=== PATIENT | male | born 1940 | race Caucasian/White ===

== ENCOUNTER 2016-08-16 16:57 | Inpatient (IN) | payer MEDICARE, OTHER ==
[~2016-08-16] VITALS: Ht 172.7 cm; Wt 87.5 kg
--- NOTE | ~2016-08-16 | DS ---
PATIENT'S NAME: JULISSA MIDDLETON [facility] AGE: 75 Y [address] ROOM: [address] [address] LOCATION: T ADMIT DATE: 08/16/2016 Discharge Summary DISCHARGE DATE: 08/19/2016 FAMILY PHYSICIAN: Mackenzie Santa MD ATTENDING PHYSICIAN: Ventura Krishnan V CORRECTED PATIENT ACCOUNT INFORMATION PER OPERATIONS 08/31/16 AO PRINCIPLE DIAGNOSES: 1. Left thalamic ischemic CVA. 2. 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 3. Aphasia. 4. Right hemiplegia. 5. Essential hypertension. 6. Hyperlipidemia. 7. Diabetes mellitus type 2. 8. Glucose intolerance. HOSPITAL COURSE: Please reference any of the admitting data to the history and physical as dictated by Dr. Krishnan. This is a 75-year-old male, who was having altered mental status and some right-sided weakness and slurred speech taken to an outside facility emergency room where he was outside the tPA window was felt to be having a stroke then was sent to the [facility] for further evaluation and management. He was admitted under the Hospitalist Service and started on the stroke management non tPA. He was initially started on aspirin 325 mg p.o. daily as well as Lipitor [address] Duarte, the neurologist was consulted. He was given permissive hypertension. After review by Dr. Duarte, the aspirin was stopped and he was initiated on Plavix and his Lipitor was increased to the maximum dosing. MRI of the brain was ordered showing a complete occlusion of the proximal left posterior cerebral artery as well as ischemic stroke in the left thalamus. He was started on physical therapy, occupational therapy, and speech therapy. He did show some improvements. Again, he was allowed on permissive hypertension. Physiatry consult was obtained and he was felt best suited to transition into inpatient rehab. He was kept on Lovenox DVT prophylaxis dosing. The remaining of his stroke workup included an echocardiogram, MRA of the neck, and carotid duplex study. The patient was kept on telemetry. On the morning of the , the patient was felt in fair condition to transition to inpatient rehab. CONSULTING PROVIDERS: Dr. Duarte, Neurologist. Dr. Ta, Physiatry. LABORATORY DATA: Cardiac enzymes negative. CBC showed white blood cells 10.1, hemoglobin 14.0, hematocrit of 43.0, and a platelet count of 216. Chemistry panel on the same day showed a glucose of 125, BUN 17, and PATIENT'S NAME: JULISSA MIDDLETON [facility] AGE: 75 Y [address] ROOM: [address] [place], [place] [address] LOCATION: TU ADMIT DATE: 08/16/2016 Discharge Summary DISCHARGE DATE: 08/19/2016 FAMILY PHYSICIAN: Mackenzie Santa MD ATTENDING PHYSICIAN: Ventura Krishnan V creatinine 1.0. Sodium 146, potassium 4.4, chloride of 113, CO2 of 25, calcium 8.6, and GFR of greater than 60. His fasting lipid panel showed a cholesterol of 115, triglycerides 84, LDL of 38, and HDL 61. His INR was 1.0. Urinalysis was negative for infection. RADIOLOGIC IMAGING: MRA of the brain showed complete occlusion of the proximal left posterior cerebral artery within the ambient cistern. An MRI of the brain showed an acute nonhemorrhagic left thalamic infarct. A MRA of the neck showed normal vertebral basilar system and normal bilateral carotid circulation. An echocardiogram showed a left ventricular ejection fraction of 60% with a left ventricle being normal in size. There was a grade 1 diastolic dysfunction. No evidence of PFO or ASD by color Doppler. There was inner atrial septum appearing aneurysmal. Mild pulmonary hypertension. Left atrium mildly dilated. Carotid Doppler study unavailable. Pending official read. DISCHARGE MEDICATIONS: 1. Atorvastatin 80 mg p.o. every day. 2. Clopidogrel 75 mg p.o. every day. 3. Docusate sodium 200 mg p.o. every day. 4. Enoxaparin 40 mg subcutaneous every day. 5. Gabapentin 100 mg p.o. 3 times daily. 6. NovoLog moderate sliding scale before meals and at bedtime. 7. Levothyroxine 88 mcg p.o. daily at 0700. 8. Metamucil 1 packet p.o. every day. 9. Tylenol 650 mg p.o. every 4 hours as needed for temperature greater than 100 or discomfort. 10. D50 of 25 mL IV push for hypoglycemia as needed per protocol. 11. Glucagon 1 mg subcutaneous for hypoglycemia as per protocol. 12. Glucose 16 grams p.o. for hypoglycemia as per protocol. 13. Lidocaine 1% for IV starts intradermally. 14. Ultram 50 mg p.o. 4 times daily as needed for pain. 15. Norvasc 2.5 mg p.o. daily, hold if systolic blood pressure is less than 130. 16. Metformin 500 mg p.o. twice daily. DISPOSITION: The patient will be transitioned to the inpatient rehab unit with continued observation by the hospitalist team in therapy and restorative plan as per Dr. Ta. PATIENT'S NAME: JULISSA MIDDLETON [facility] AGE: 75 Y [address] ROOM: [address] [place], [place] [address] LOCATION: [facility] ADMIT DATE: 08/16/2016 Discharge Summary DISCHARGE DATE: 08/19/2016 FAMILY PHYSICIAN: Mackenzie Santa MD ATTENDING PHYSICIAN: Ventura Krishnan V His code status should be full code. His diet should be diabetic and cardiac diet and low fat, low salt, low cholesterol. His weightbearing status as tolerated with fall precautions. Again therapies directed by Dr. Ta. Specific recommendations were made for goals of blood pressure management between systolic 120-160 mmHg. Blood sugar monitoring before meals and at bedtime were also recommended. The above plan was discussed with the patient and his spouse who stated complete understanding and agreed to the plan. All questions were answered satisfactorily. Total time arranging discharge greater than 30 minutes as documented by Dr. Bowers in the progress note on day of discharge. Thank you for allowing us to participate in the care of this patient while at [facility]. MALDONADO BARKLEY APRN, APRN FOR MD HERMES TEMPLE/heidi /[id number] CORRECTED PATIENT ACCOUNT INFORMATION PER OPERATIONS 08/31/16 AO d: t: 08/31/16 1033, DISCHARGE SUMMARY
--- NOTE | ~2016-08-16 | CON ---
PATIENT'S NAME: TIMOTHY MIDDLETONH Pravin [facility] AGE: 75 Y [address] ROOM: [place] [address] LOCATION: [facility] ADMIT DATE: 08/16/2016 Consultation DISCHARGE DATE: FAMILY PHYSICIAN: Mackenzie Santa MD ATTENDING PHYSICIAN: CURT PARISH REFERRING PHYSICIAN: Jay Pablo MD Consult for Dr. Krishnan. This pleasant 75-year-old gentleman is referred for rehab evaluation admission (?) was admitted on 08/16/2016 with right-sided weakness and disorientation, progressively getting worse along with slurred speech, and was seen in a local hospital and referred here for definitive management. His confirms that he did have small strokes before at least twice and he recovered well. PAST MEDICAL HISTORY: Of significant as follows, 1. CA bladder, status post resection. 2. Hypertension. 3. Diabetes type 2. 4. Dyslipidemia. 5. Hypothyroid. 6. Mild to moderate obesity. PHYSICAL EXAMINATION: GENERAL: At the present time, he is alert, oriented, feels well, requires some cuing along the way to orient well to the place and person. VITAL SIGNS: Blood pressure 195/86, temperature 98.1, pulse 65, respirations 16. He is 5 feet 8 inches and weighs 84.8 kg. HEENT: He has slight very mild right facial droop and has right distant temporal visual cut/neglect. His tongue on the right side is slightly less mobile than the left side. However, soft palate is moving symmetrical. Voice is clear and not wet. NEURO: He has no dizziness and no vertigo at the present time. Denied headaches. He is less coordinated with the right upper and lower extremity and maybe a little bit weaker (he is right handed). His MRI of the brain shows critical acute infarct without hemorrhage in the left thalamic area close to the ventricles. He is neurologically otherwise intact. Deep tendon reflexes present and equal throughout. Bowel and bladder, good control. MEDICATIONS: He is on following medications: PATIENT'S NAME: TIMOTHY MIDDLETONH Pravin [facility] AGE: 75 Y [address] ROOM: [address] [address] LOCATION: [facility] ADMIT DATE: 08/16/2016 Consultation DISCHARGE DATE: FAMILY PHYSICIAN: Mackenzie Santa MD ATTENDING PHYSICIAN: CURT PARISH 1. Colace. 2. Metamucil. 3. Lipitor. 4. Plavix. 5. Synthroid. 6. Gabapentin. 7. Tramadol. 8. Insulin aspartate moderate scale. 9. Glucagon. 10. Glucose. 11. Dextrose. 12. Tylenol. 13. Aspirin. I will continue him on PT and OT and will add Speech Therapy to his therapies at the present time. I feel that this gentleman will benefit from intensive rehabilitation for about maybe 2 weeks. He can at the present time ambulate 25-30 feet with moderate assistance. He is high risk of falling. I did explain all this to his and himself, they verbalized understanding and in agreement. Thank you for this referral. JAY PABLO MD WMS/modl /[id number] d: 08/17/16 1913 t: 08/18/16 0841, CONSULTATION REPORT
--- NOTE | ~2016-08-16 | CON ---
PATIENT'S NAME: JULISSA FONG [facility] AGE: 75 Y [address] ROOM: [place] [address] LOCATION: [facility] ADMIT DATE: 08/16/2016 Consultation DISCHARGE DATE: FAMILY PHYSICIAN: PHYSICIAN, UNKNOWN ATTENDING PHYSICIAN: CURT PARISH REFERRING PHYSICIAN: Jay Ta MD HISTORY OF PRESENT ILLNESS: The patient was seen in Neurologic consultation on 08/16/2016 at 9:00 p.m. Mr. Fong is a 75-year-old male patient who has a history of hypertension and diabetes. He recently has had worsening of his glucose control. Apparently, he was in a normal state of health this morning, watching TV with his . Did not have any slurring of his speech. Around noon, his said that she had found him in his room sleeping in the bed. This was strange because he normally he does not leave his recliner to go to sleep. She came into the room and saw him and thought that he was a bit drowsy, but did not think too much of it. Around 3 o'clock, he awoke and she noted that he was slurring his speech a lot more than usual and perhaps had a facial droop. She described it as a more pronounced droop on the left; however, it appears that the flattening of the nasolabial fold is actually on the right as well as him having some difficulty in ambulating, more likely associated with right-sided weakness. Potentially more right upper arm weakness from his baseline. 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 At around 2:30 p.m., the patient was taken by the EMS service to the hospital at [facility] near the patient's home for evaluation. At the hospital, a CAT scan of the brain was done to rule out any evidence of a new stroke. A CAT scan was reviewed by myself and by the radiologist and did not show any evidence of any new or evolving stroke and there was no evidence of any intracranial hemorrhage or mass. Currently, the patient is in his room. He is alert and oriented, but is significantly affected by slurring of his speech. He is a bit slow in answering questions. He had noted right hand weakness and somewhat of a drift in his right hand. Otherwise his lower extremity power was symmetric. Presently, he denied any numbness of the jennifer body. He denied any visual field deficits. Currently, the patient is in sinus bradycardia with no evidence of ST or T-wave changes. There is an occasional extra beat or bigeminal rhythm. No evidence of any arrhythmia. PRIOR MEDICAL HISTORY: Noted a history of hypertension and diabetes. ALLERGIES: HE HAS ALLERGIES TO KEFLEX WHICH CAUSES HIM TO GET A RASH. FAMILY HISTORY: PATIENT'S NAME: JULISSA FONG [facility] AGE: 75 Y [address] ROOM: [address] [place], [place] [address] LOCATION: [facility] ADMIT DATE: 08/16/2016 Consultation DISCHARGE DATE: FAMILY PHYSICIAN: PHYSICIAN, UNKNOWN ATTENDING PHYSICIAN: CURT PARISH His mother and father both had coronary artery disease and both had strokes. SOCIAL HISTORY: He is for 45 years. He has 3 boys. He still works occasionally, doing outdoor work, but is essentially retired. 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 REVIEW OF SYSTEMS: The patient presented with acute onset of some slurring of his speech, some time around mid day, some tiredness over all. There was no evidence of any headaches. No evidence of seizures. No evidence of any visual field complaints. He presented very much like he is presently to the hospital, a bit confused to the date and time and the speech is slow with often some paraphasic errors. He does have a mumbling quality to his speech. There is a subtle flattening of the right nasolabial fold and weakness of his right upper extremity, combined with some chronic proximal pain and weakness. CURRENT MEDICATIONS: At home included, 1. Baby aspirin 81 mg daily. 2. Amlodipine 2.5 mg p.o. daily. 3. Gabapentin 100 mg three times a day. 4. Glipizide ER 5 mg p.o. daily. 5. Levothyroxine 88 mcg p.o. daily. 6. Ramipril 10 mg p.o. b.i.d. 7. Tramadol 50 mg four times a day p.r.n. 8. Atorvastatin 10 mg p.o. daily. PHYSICAL EXAMINATION: GENERAL: The patient is alert. Has some problems with orientation to date and time and even to months. He has some errors in naming parts of objects such as pen point. Other attempts to name objects resulted in evidence of a dysarthric type of a problem or some type of motor aphasia. NEUROLOGICAL: Rest of physical exam, on cranial nerve, there is a right hemianopsia with the patient unable to identify the fingers moving in his right visual field up to nasal. Left visual field is normal. There is some visual field neglect present. 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 The proximal power was difficult to assess on the right due to the pain at the shoulder. The right lower extremity power is 4+ to nearly 5 and symmetrical and nearly symmetrical with the left. The left upper extremity is full power. Sensory exam: Completely intact and there is no cortical signs of neglect with double simultaneous stimulation and right to left discrimination. He has this normal. The patient was not ambulatory presently. PATIENT'S NAME: JULISSA FONG [facility] AGE: 75 Y [address] ROOM: [place] [address] LOCATION: [facility] ADMIT DATE: 08/16/2016 Consultation DISCHARGE DATE: FAMILY PHYSICIAN: PHYSICIAN, UNKNOWN ATTENDING PHYSICIAN: CURT PARISH IMPRESSION: Mr. Julissa Fong has a history of diabetes. Were not clear as to how poorly controlled he is, but there is only some evidence of glucose elevation on his laboratory. Otherwise his CBC and basic metabolic panel is within normal limits. Coagulation profile also within normal limits. There is no evidence of any troponin elevation and liver function tests and kidney function tests were all normal. The patient likely had a stroke involving the posterior or parietal region of the brain with some aspect of aphasia going on here. This would possibly be related to a left OFFICE RUNNER, posterior cerebral artery infarct or some type of optic radiation infarct involving some areas of the basal ganglia to the thalamus. An MRI is ordered and the patient will likely have this in the morning for stroke management. Let us put him on Plavix instead of the aspirin at this point. I would recommend increasing the Lipitor to a full dose of 80 mg as recommended by the [employer], post stroke management, and finally even though the patient comes in with normal sinus rhythm, the possibility of an arrhythmia is certainly possible. If this does field return repairer to be a larger territorial type of a stroke especially in isolation. The patient's mental status suggested a larger stroke than what would be expected with a small lacuna. Since he does seem to be a bit slow to respond. Tired overall. We will continue to follow along with the hospitalist service on Mr. Julissa Fong' status. MD MARILYN CARPENTER/heidi /[id number] P d: 08/17/16 0200 t: 09/01/16 1523, CONSULTATION REPORT
--- NOTE | ~2016-08-16 | HP ---
PATIENT'S NAME: TIMOTHY MIDDLETONH Pravin [facility] AGE: 75 Y [address] ROOM: [address] [address] LOCATION: [facility] ADMIT DATE: 08/16/2016 History & Physical DISCHARGE DATE: FAMILY PHYSICIAN: PHYSICIAN, UNKNOWN ATTENDING PHYSICIAN: CURT PARISH DATE OF SERVICE: CHIEF COMPLAINT: Altered mental status. HISTORY OF PRESENT ILLNESS: The patient is a 75-year-old male with past medical history of hypertension and diabetes. He was observed by his to be progressively more altered in a course of the day. Eventually, she found him quite altered, disoriented, and with some right-sided weakness and slurred speech. She called the paramedics, and the patient was taken to the ER in [place]. At that point, the suspicion was strong for an acute CVA, but he was already out of the tPA window. As such, he was transferred to [facility] for further evaluation. Of note, the does tell me that the patient told her that has had a "mini- stroke" on several occasions in the last several months. Unfortunately, I am unable to understand exactly what he means by that. REVIEW OF SYSTEMS: All systems have been reviewed and are negative aside from pertinent positives mentioned above. PAST MEDICAL HISTORY: Hypertension, hyperlipidemia, and type 2 diabetes. SURGICAL HISTORY: Significant for bladder cancer, status post resection, which is now apparently inactive. CURRENT MEDICATIONS: Being compiled by the nursing staff. SOCIAL HISTORY: Negative for any history of ongoing toxic habits. The patient is still quite active and still works. FAMILY HISTORY: Significant for cerebrovascular disease on both sides of the family. PHYSICAL EXAMINATION: PATIENT'S NAME: JULISSA MIDDLETON [facility] AGE: 75 Y [address] ROOM: [address] [place] [id number] LOCATION: [facility] ADMIT DATE: 08/16/2016 History & Physical DISCHARGE DATE: FAMILY PHYSICIAN: PHYSICIAN, UNKNOWN ATTENDING PHYSICIAN: CURT PARISH VITAL SIGNS: At this point, his blood pressure is 153/63, heart rate is in the 60s, saturating 96% on room air, afebrile, and respirations are 16. GENERAL: Appears as a well-developed, well-nourished, elderly male, quite sedate and disoriented. NEURO: A detailed neurological exam is positive for right-sided droop and confusion. Pupils which are 3 mm bilaterally and nonreactive. Very slight impairment of the right-sided gaze. 3/5 weakness in right upper extremity. Ataxia in the right upper extremity. Some aphasia and dysarthria as well as partial right-sided neglect. LYMPHATIC: Exam shows no cervical lymphadenopathy. ENDOCRINE: Exam shows no thyromegaly. LUNGS: Clear to auscultation. HEART: Rate is regular. No appreciable murmurs, gallops, or rubs. GI: Abdomen is soft, nontender, and nondistended. : No costovertebral angle tenderness. There is a Denis in place, which is draining pink urine. VASCULAR: Exam reveals 2+ pedal pulses. SKIN: Reveals a leanna appearance of his face and multiple small vein varicosities over bilateral lower extremities. PSYCHIATRIC: Exam reveals slightly depressed mood and cognition as well as very flat affect. MUSCULOSKELETAL: Exam is unremarkable. LABORATORY DATA: Studies from the outside facility significant for an elevated glucose and a CT scan of his head, which shows senescent changes. ASSESSMENT AND PLAN: This is a 75-year-old male who will be admitted with, 1. Most likely acute cerebrovascular accident. We will start him on some IV fluids to try and maintain his blood pressure. We will start him on full- dose aspirin and statins. We will initiate a standard workup with MRIs, carotid Dopplers, and a 2-dimensional echocardiogram. We will attempt a bedside swallow evaluation. We will get a Neurology consultation in the morning. 2. Type 2 diabetes. We will put the patient on insulin sliding scale. 3. Hypertension. We will opt for a 48-hour period of permissive hypertension. 4. Bladder cancer noted. This is distant and at this point not pertinent. 5. Goals of care: The patient's spouse tells me that he expresses a desire to be full code and we will respect that. Additional management will depend on clinical course. Time dedicated to this patient's encounter is 35 minutes. PATIENT'S NAME: JULISSA MIDDLETON [facility] AGE: 75 Y [address] ROOM: [address] [place], [place] [address] LOCATION: [facility] ADMIT DATE: 08/16/2016 History & Physical DISCHARGE DATE: FAMILY PHYSICIAN: PHYSICIAN, UNKNOWN ATTENDING PHYSICIAN: CURT PARISH MD Breonna SUERO /[id number] D: [id number] T: [id number] HISTORY & PHYSICAL
--- NOTE | ~2016-08-16 | ECHO ---
Transthoracic Echocardiography Report (TTE) Demographics Patient Name JULISSA MIDDLETON Date of Study 08/17/2016 Patient Number [id number] Visit Number [id number] Date of 1940 Room Number G6228 Accession Number [id number] Gender Male Age 75 year(s) Referring Jazmin Lane MD Golf Player Assistant Charisse Ellis RVT, Physician WILLY Arriaga Physician Interpreting Kristal Kennedy Drywaller Physician Pravin TRENT Supervising Ordering Physician Eulogio Martinez MD/JACY TRENT Nurse Stress Vacuum Cleaner Operator Conclusions Contractility Score Summary Normal Left Ventricular contractility was noted. Summary The estimated left ventricular ejection fraction is 60%. The left ventricle is normal in size . Diastolic assessment reveals Grade I diastolic dysfunction. The interatrial septum appears aneurysmal. No evidence of PFO or ASD by color doppler. Trivial tricuspid regurgitation by color Doppler. There is mild pulmonary hypertension. The pulmonary pressure (RVSP) is 37 mmHg. Procedure Type of Study TTE procedure:2D Echocardiogram, M-Mode, Doppler , Color Doppler. Procedure Date Date: 08/17/2016 Start: 07:15 AM Study Location: Inpatient Portable Technical Quality: Adequate visualization Indications:CVA. Appropriate Use Criteria: 9 Patient Status: Routine HR: 62 bpm BP: 164/70 mmHg M-Mode/2D Measurements LV Diastolic Dimension: 4.8 cm LV Systolic Dimension: 2.68 cm LV Septum Diastolic: 0.92 cm LV PW Diastolic: 0.9 cm AO Root Dimension: 3.1 cm Cardiac Output: 5.2 l/min AV Cusp Separation: 1.9 cm RV Diastolic Dimension: 3.02 cm LA volume: 45 ml LVOT: 2 cm RV Base: 2.76 cm LVOT VTI: 26.7 cm RV Mid: 2.06 cm LV Stroke volume: 83.84 ml TAPSE: 2.33 cm TDI-S': 16 cm/s Doppler Measurements AV Peak Velocity: 1.11 m/s MV Peak E-Wave: 0.82 m/s AV Peak Gradient: 4.93 mmHg MV Peak A-Wave: 1.13 m/s AV Mean Gradient: 3 mmHg MV E/A Ratio: 0.72 LVOT Peak Velocity: 1.18 m/s MV P1/2t: 84 msec TR Gradient:28.73 mmHg PV Peak Velocity: 1.06 m/s Estimated RAP:8 mmHg PV Peak Gradient: 4.49 mmHg Estimated RVSP: 37 mmHg Estimated PASP: 36.73 mmHg E' Septal Velocity: 0.06 m/s A' Septal Velocity: 0.13 m/s E' Lateral Velocity: 0.09 m/s A' Lateral Velocity: 0.19 m/s Findings Left Ventricle The left ventricle is normal in size . Diastolic assessment reveals Grade I diastolic dysfunction. Right Ventricle Normal right ventricle structure and function. Left Atrium The left atrium is mildly dilated. The interatrial septum appears aneurysmal. No evidence of PFO or ASD by color doppler. Right Atrium Normal right atrial size. IVC measures 1.68 cm with partial inspiratory collapse. Mitral Valve Mild mitral annular calcification. Trivial mitral regurgitation by color Doppler. Aortic Valve The aortic valve is mildly sclerotic. Tricuspid Valve Normal tricuspid valve structure and function. Trivial tricuspid regurgitation by color Doppler. There is mild pulmonary hypertension. The pulmonary pressure (RVSP) is 37 mmHg. Pulmonic Valve The pulmonic valve is not well visualized. Trivial pulmonic valve regurgitation by color Doppler. Pericardial Effusion No evidence of pericardial effusion. Miscellaneous Visualized portions of the aortic root and ascending aorta appear normal in size. Pleural Effusion No evidence of pleural effusion. Contractility Score LV regional wall motion:(0-Non visualized 1-Normal 2-Hypokinesis 3-Akinesis 4-Dyskinesis 5-Aneurysm) Signature dtt: Isela Giraldo dtd: 08/17/16 0715 Physician Self Edit
[2016-08-16] MEDS ORDERED: LIPITOR80 MG PO (20:21)
[2016-08-16] MEDS ORDERED: NORVASC2.5 MG PO (20:22)
[2016-08-16] MEDS ORDERED: NEURONTIN100 MG PO (20:23)
[2016-08-16] MEDS ORDERED: GLUCOTROL 5MG XL5 MG PO (20:24)
[2016-08-16] MEDS ORDERED: LEVOTHROID (SY88 MCG PO (20:26)
[2016-08-16] MEDS ORDERED: ALTACE10 MG PO (20:32)
[2016-08-16] MEDS ORDERED: ULTRAM50 MG PO (20:34)
[2016-08-16] MEDS ORDERED: ASPIRIN LO-DOSE81 MG PO (20:35)
[2016-08-16] MEDS ORDERED: STOOL SOFTENER100 MG PO (23:28)
[2016-08-16] MEDS ORDERED: METAMUCIL PACKE1 PKT PO (23:29)
--- NOTE | 2016-08-17 02:25 | NUR ---
THE PATIENT IS FROM [facility]. GOT UP TODAY AND WAS FINE, AROUND NOON HE LAYED DOWN FOR A NAP, HIS WENT TO CHECK ON HIM AND HE WAS VERY DROWSY WITH MUMBLED SPEECH, SHE DID NOT THINK ANYTHING OF THIS AT THE TIME AND JUST LET HIM REST. LATER SHE WENT TO CHECK ON HIM AGAIN AND SHE NOTICED HE COULD NOT SPEAK CORRECTLY AND WAS SLURRING HIS WORDS, SHE ALSO NOTICED A RIGHT FACIAL DROOP. SHE CALLED THE UNIT AND HE WAS TAKEN TO THE [facility] WHERE A CT OF HIS HEAD WAS DONE, THE PATIENT WAS THEN TRANSFERRED HERE BY AMBULANCE. HE ARRIVED TO OUT UNIT AT 1945. IS ALERT AND ORIENTED X2, FORGETFUL BUT REORIENTS EASILY. PIV X2. ALLERGY TO KEFLEX. HX OF DIABETES AND HYPERTENSION. THE PATIENT ALSO HAS RIGHT ARM WEAKNESS DUE TO A SORE SHOULDER. NIHSS ON ADMISSION WAS AN 9.
[2016-08-17 04:05] LABS: BASOPHIL % 0.4 %; EOSINOPHIL # 0.5 K/uL (0.0-0.5); EOSINOPHIL % 4.6 %; IMMATURE GRANULOCYTE % 0.2 %; LYMPHOCYTE # 3.4 K/uL (0.8-4.0); LYMPHOCYTE % 33.1 %; MCH 30.6 pg (27.0-34.0); MCHC 32.6 gm/dL (32.0-36.5); MCV 93.9 fl (83.0-98.0); MONOCYTE # 0.8 K/uL (0.0-1.0); MPV 9.4 fl (9.4-12.4); NEUTROPHIL # (ANC) 5.4 K/uL (1.4-9.0); NEUTROPHIL % 53.7 %; NRBC % 0 /100WBC (0-0.00); PLATELET COUNT 216 K/uL (150-450); RBC 4.58 M/uL (3.50-5.50); RDW-CV 12.6 % (11.9-14.6); WBC 10.1 K/uL (4.0-11.0)
[2016-08-17 04:16] LABS: PROTIME 10.2 SECONDS (9.6-11.1); PTT 27 SECONDS (25-32)
[2016-08-17 04:33] LABS: BLOOD UREA NITROGEN 17 mg/dL (6-24); CALCIUM 8.6 mg/dL (8.5-10.5); CHLORIDE 113 mMol/L (96-110); CO2 25 mMol/L (22-32); CPK 59 IU/L (35-332); POTASSIUM 4.4 mMol/L (3.7-5.1)
[2016-08-17 04:34] LABS: ANION GAP 12.4 (10.0-19.0); ESTIMATED GFR (MDRD EQUATION) > 60; SODIUM 146 mMol/L (135-145)
--- NOTE | 2016-08-17 05:06 | NUR ---
Significant Event: The Patient is Alert and Oriented x1, Forgetful of place and time, Reorients easily. NIHSS 9. Right arm is weaker than the Left, the patient does have a sore R) shoulder. Bilateral legs have Moderate and Equal strength. He states he has Dull sensation to his Right Lower Leg. His stated that he has chronic N/T to bilateral feet from Diabetic Neuropathy. VSS-Hypertensive. On room air. Accu checks ACHS. Denis draining yellow urine currently, on admission the urine was pink due to tramatic placement. Pupils are equal and reactive. No complaints of pain. PIV to the Right wrist saline locked. PIV to the Left hand infusing NS at 110ml/hr. Follow up: Will have MRI/MRA, TTE, Carotids today
--- NOTE | 2016-08-17 11:15 | NUR ---
CONSULT RECEIVED FOR DIET ED PER STROKE PROTOCOL. WILL PROVIDE DIET ED PRIOR TO DC APPROPRIATE.
--- NOTE | 2016-08-17 13:10 | NUR ---
introduced self and role of care managmement to patient and his family. He lives with his in [place]. His states that normally he is able to do all his own ADL's. We discussed discahrge plans. Dr Ta had just been in the room and told patient and family he would like to take patient to Inpatient Rehab for 12-14 days. I explained that I would speak with Nancy Damon on Inpatient Rehab to see when they would have a bed available. Will continue to follow.
--- NOTE | 2016-08-17 13:50 | NUR ---
Significant Event: PT IS ALERT TO SELF; KNOWS THAT HE IS IN [facility] AT TIMES. PERRLA. SPEECH IS MUMBLED AT TIMES. NIH-SS WAS A 9 THIS AM; R)SIDE IS WEAKER THAN L)SIDE, R)DRIFT NOTED TO BOTH LIMBS, R)EYE DEFICIT, ATAXIA AND R)SIDE IS DULLER. TRANSFERRED WITH 2-ASSIST/GAIT BELT/WALKER THIS MORNING WITH PHYSICAL THERAPY. PT DID AMBULATE IN THE ROOM. NO COMPLAINTS OF PAIN. PERES INTACT, DRAINING YELLOW URINE. AC/HS ACCUCHECKS WITH MODERATE SLIDING SCALE. BILATERAL CALF PUMPS IN PLACE. IV'S TO R)WRIST AND L)HAND INTACT. IV FLUIDS INFUSING AT 110 ML/HR. DIABETIC DIET; GOOD APPETITE. TAKES MEDICATIONS WHOLE WITH WATER; NO SWALLOWING ISSUES NOTED. MRI/MRA/ECHO/CAROTIDS DONE THIS MORNING. SAW THE PT THIS MORNING. FAMILY HAS BEEN AT BEDSIDE. Follow up: CONTINUE TO MONITOR
--- NOTE | 2016-08-17 17:33 | NUR ---
Spoke with Nancy DOMINIQUE on [facility]. She feels patient would benifit from 1 additional day on acute care. Will plan on transfer to [facility] on Saturday 08/19 at 0900.
--- NOTE | 2016-08-18 03:46 | NUR ---
Significant Event: ALERT AND ORIENTED TO SELF. OCCASIONALLY ORIENTED TO PLACE. MOVES ALL EXTREMITIES SPONTANEOUSLY AND TO COMMAND. RIGHT SIDED WEAKNESS NOTED ON UPPER AND LOWER EXTREMITIES. NIHSS STROKE SCALE 9. SPEECH MUMMBLED AT TIMES. DRIFT NOTED TO RIGHT LEG. RIGHT SIDE FACIAL DROOP. RIGHT SIDED DULLNESS. APHASIA. UP TO BATHROOM 1 ASSIST GAIT BELT AND WALKER. DENIES PAIN. JA REMOVED THIS AM. ACHS ACCUCHECKS. IV TO RIGHT WRIST SALINE LOCKED. IV TO LEFT HAND RUNNING NS AT 110/HR. MEDS WHOLE WITH WATER. Follow up:
--- NOTE | 2016-08-18 10:01 | NUR ---
[facility] note: 0845 Spoke briefly with patient and spouse. Patient does try to explain in his own words why he is in the hospital, but words "....just don't come out right". Spouse is provided the Diabetes Survival Skills checklist and Diabetes Management booklet, most of the questions that spouse has currently are related to dietary management. Spouse states she is away from home from 9a.m. to 5 p.m. and patient "eats things that are probably not the best for him" No current A1C on chart, but states at the last clinic visit the Doctor increased his Glipizide and he now takes 2 pills instead of one. Patient does have a meter at home. We will continue to assess educational needs and order RD consult for on-going education.
--- NOTE | 2016-08-18 12:44 | NUR ---
Spoke with patients and updated her that patient can transfer to [facility] on 08/19 at 9am if medically stable. She is in agreement with patient going to [facility].
--- NOTE | 2016-08-18 16:28 | NUR ---
Significant Event: Patient is A&O to person and occasionally place. Moves all extremeties spontaneously and on command. Right sided weakness is noted, but is much stronger today. Speech has improved, but occasionally mumbles. Patient has right sided shoulder pain. Slight right sided drift in upper extremity. Ultram last given at 1330. Denies any headaches. States some numbness and tingling in toes. 1 person assist to bathroom and chair. IV to right wrist saline locked. Flushes well. IV to left hand is running NS at 110ml/hr. Takes meds whole with water. ACHS accuchecks with moderate sliding scale. Diabetic diet. Good appetite.
--- NOTE | 2016-08-19 01:03 | NUR ---
SIGNIFICANT EVENT: PATIENT A/O X 3 THIS SHIFT. COMPLAINS OF FEELING CONFUSED AT TIMES. DULLNESS TO RIGHT UPPER AND LEFT EXTREMITY, BUT DENIES N/T. SLIGHTLY WEAKER IN RIGHT HAND GRASP OTHERWISE EQUAL STRENGTH THROUGHOUT. EXPRESSIVE APHASIA. SLIGHT RIGHT SIDE FACIAL DROOP. AMBULATES 1 ASSIST GB/WALKER. PIV TO BILATERAL WRISTS. L) PIV RUNNING NS AT 10 ML/HR. LUNGS CLEAR AND DIM THROUGHOUT ON ROOM AIR. SS=5. ACHS ACCUCHECKS MODERATE SCALE. PAIN TO RIGHT SHOULDER, STATES TOLERABLE. FOLLOW UP: INPATIENT REHAB AFTER HOSPITALIST SEES.
--- NOTE | 2016-08-19 06:47 | NUR ---
SIGNIFICANT EVENT: Patient is alert and oriented x 3. Aphasic. Dullness to right extremities. Feels confused at times. Right hand grasp weaker than left. Right facial droop. 1PA, gait belt, walker. Moves spontaneously and to command. PERRL. IV to left wrist infusing NS at 110 mL/hr with no complications and IV to right wrist SL with no complications. HTN. VSS. Afebrile. On room air. Lungs clear and diminished. Voids per restroom without difficulty. Large BM this shift. ACHS accucheks with moderate SSI. FOLLOW UP: [facility] today after hospitalist sees first, NIHSS, accucheks
--- NOTE | 2016-08-19 08:37 | NUR ---
Patient alert and oriented X2. Patient confused to month at times. Expressive aphasia. NIHSS 5. Denies N/T. Follows commands and moves all extremities spontaneously. R) eye deficit. R) slight facial droop. Denies dizziness/headache. VSS. HTN. Restarted Norvasc this AM. Room air with sats in the mid 90s. LS clear throughout. Voids per restroom. BS acitve X4. Bruising and scabs to bialteral legs. R) wrist and L) Hand PIVs SLL. 1 assist with gaitbelt and walker. Accuchecks ACHS with SSI. No coverage needed this AM. Dr Bowers to start Metformin. Diabetic diet. Takes pills whole with water. Pneumonia shot to left upper arm. at bedside. Pleasant and cooperative with cares.
--- NOTE | 2016-08-19 09:54 | NUR ---
Significant Event: Please refer to transfer note. Patient transferred to [facility] at 0915. Report called and given to DESI Arriola. PIVs D/Cd prior to transfer. Possessions sent with patient. Follow up:
== END 2016-08-19 09:25 | DRG 65 ==
LOC: GNTU 16:57
PROVIDERS: ADMIT Internal Medicine
DX: I63.532 Cerebral infarction due to unspecified occlusion or stenosis of left posterior cerebral artery (principal); G81.91 Hemiplegia, unspecified affecting right dominant side; E11.9 Type 2 diabetes mellitus without complications; I10 Essential (primary) hypertension; E03.9 Hypothyroidism, unspecified; E78.5 Hyperlipidemia, unspecified; I63.542 Cerebral infarction due to unspecified occlusion or stenosis of left cerebellar artery; Z85.048 Personal history of other malignant neoplasm of rectum, rectosigmoid junction, and anus; E66.9 Obesity, unspecified; Z91.81 History of falling; Z23 Encounter for immunization; Z68.28 Body mass index [BMI] 28.0-28.9, adult; R47.81 Slurred speech
CPT/HCPCS: A9577; G0009; J1650; J7030

== ENCOUNTER 2016-08-19 09:26 | Inpatient (IN) | payer MEDICARE, OTHER ==
[~2016-08-19] VITALS: Ht 172.7 cm; Wt 85.9 kg
--- NOTE | ~2016-08-19 | DS ---
PATIENT'S NAME: TIMOTHY MIDDLETONH Pravin [facility] AGE: 75 Y [address] ROOM: [address] [place], [place] [address] LOCATION: [facility] ADMIT DATE: 08/19/2016 Discharge Summary DISCHARGE DATE: FAMILY PHYSICIAN: Mackenzie Santa MD ATTENDING PHYSICIAN: Jay Ta HISTORY OF PRESENT ILLNESS: This 75-year-old gentleman was admitted to rehab unit at [facility], [place], [place] on 08/19/2016. He is discharged to home on 08/28/2016. 1. Unstable gait. 2. Dependent on activities of daily and self-care. 3. Status post right hemiplegia leading to unstable gait and dependent on activities of daily and self-care with difficulty with talking and memory. 4. He made good recovery. At the present time, he is alert and oriented. PHYSICAL EXAMINATION: VITAL SIGNS: Blood pressure 139/71, temperature 98.6, pulse 80, respirations 14. GENERAL: He still has some motor planning deficiency with some apraxia; however, he can ambulate easily over 600 feet x2 and did descend and ascend ramps without much difficulty. However, he has a slow velocity and at risk of falling. At this time, he is advised not to drive until he is re-evaluated. FOLLOWUP: 1. Follow up with me in 3 weeks. 2. Follow up with his family physician as soon as possible. MEDICATIONS: As per discharge summary and all his medication renewal per his family physician. Medications are as follows: 1. Norvasc 2.5 mg p.o. daily. 2. Lipitor 80 mg p.o. daily. 3. Plavix 75 mg p.o. daily. 4. Colace 200 mg p.o. daily. 5. Neurontin 100 mg 3 times daily p.o. 6. Levothroid 88 mcg p.o. daily. 7. Glucophage 500 mg twice daily. 8. Metamucil 1 pack a day for constipation. 9. Ultram 50 mg 4 times daily as needed, 36 of them. FINAL DIAGNOSES: 1. Unstable gait. 2. Dependent on activities of daily and self-care. 3. 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 4. Hypothyroid. PATIENT'S NAME: JULISSA MIDDLETON [facility] AGE: 75 Y [address] ROOM: [place] [address] LOCATION: [facility] ADMIT DATE: 08/19/2016 Discharge Summary DISCHARGE DATE: FAMILY PHYSICIAN: Mackenzie Santa MD ATTENDING PHYSICIAN: Jay Ta 5. Hypertension. 6. Diabetes type 2. 7. History of carcinoma of bladder, status post resection. 8. Dyslipidemia. 9. Neuropathy. DISCHARGE INSTRUCTIONS: The patient is advised again not to drive and/or consume alcohol for the time being. He is given a script for 2 times per week for the coming 3 weeks. I will see him thereafter. Must follow with his family physician as soon as possible. All the above was explained to him in detail. He verbalized understanding and agreement with plan of care. JAY TA MD WMS/modl /[id number] d: 08/28/16 0255 t: 08/28/16 0803, DISCHARGE SUMMARY
--- NOTE | ~2016-08-19 | HP ---
[facility] 75 [facility] [address] ROOM: [place] [address] LOCATION: [facility] ADMIT DATE: 08/19/2016 History & Physical DISCHARGE DATE: FAMILY PHYSICIAN: Mackenzie Santa MD ATTENDING PHYSICIAN: Jay Pablo DATE OF SERVICE: This 75-year-old gentleman is admitted for continuous medical treatment and intensive rehabilitation with right-sided weakness with disorientation and slurred speech initially with unstable gait, dependent activities of daily self-care, at risk of falling. Note: I saw this gentleman on initial evaluation consult on 08/17/2016 and recommended intensive rehab for about 2 weeks and today on 08/19/2016 upon the evaluation I think he will benefit from intensive rehabilitation of about 2 weeks aiming to discharge on modified independence and follow on outpatient basis thereafter. He is at the present time alert, oriented. VITAL SIGNS: On admission, blood pressure 187/84, temperature 97.9, pulse 62, regular, respiration rate 18 and regular. He is 5 feet, 8 inches tall and weighs 87.5 kg. ALLERGIES: HE IS ALLERGIC TO CEPHALEXIN. HE IS ON THE FOLLOWING MEDICATIONS: 1. LIPITOR 80 MG P.O. DAILY. 2. PLAVIX 75 MG P.O. DAILY. 3. COLACE 200 MG P.O. DAILY. 4. LOVENOX 40 MG SUBCU DAILY. 5. NEURONTIN 100 MG 3 TIMES DAILY. 6. NOVOLOG INSULIN 100 UNITS SUBCU BEFORE MEALS AND AT BEDTIME. 7. LEVOTHROID 88 MCG P.O. DAILY. 8. METAMUCIL 1 PACKET DAILY. 9. TYLENOL 650 Q.6 H., DO NOT EXCEED ACETAMINOPHEN 4 G Q.24 H. 10. DEXTROSE 50% 25 ML IV FOR HYPOGLYCEMIA P.R.N. 11. GLUCAGON 1 MG SUBCU FOR HYPOGLYCEMIA P.R.N. 12. GLUCOSE 16 G P.O. FOR HYPOGLYCEMIA P.R.N. 13. LIDOCAINE FOR IV START PER PROTOCOL. 14. ULTRAM 50 MG P.O. 4 TIMES DAILY NEEDED. 15. NORVASC 2.5 MG P.O. DAILY HOLD IF SYSTOLIC BLOOD PRESSURE BELOW 130. 16. METFORMIN 500 MG TWICE DAILY P.O. PAT[facility]'S [facility]: [facility] 75 Y [address] ROOM: [address] [place] [address] LOCATION: [facility] ADMIT DATE: 08/19/2016 History & Physical DISCHARGE DATE: FAMILY PHYSICIAN: Mackenzie Santa MD ATTENDING PHYSICIAN: Jay Pablo PAST HISTORY OF SIGNIFICANCE: 1. HISTORY OF HYPERTENSION. 2. DYSLIPIDEMIA. 3. DIABETES TYPE 2. 4. CA BLADDER, STATUS POST RESECTION. 5. HYPOTHYROID. 6. NEUROPATHY. AT THE PRESENT TIME, WE WILL PUT ON INTENSIVE PT, OT, AND SPEECH 3 HOURS PER DAY, 15 HOURS PER WEEK FOR ABOUT 2 WEEKS. WE WILL PUT ON ADA REGULAR CONCENTRATION DIET 1800 CALORIE. IN A.M., WE WILL SEND FOR URINALYSIS, CBC, CMS, AND HEMOGLOBIN A1C IF NOT DONE RECENTLY. WE WILL KEEP ON HOSPITALIST AND DR. TSE'S NEUROLOGY [facility]ENSUS TO FOLLOW NECESSARY. HE WILL BE AT THE PRESENT TIME ALSO WATCHED FOR THE LEFT ARM SWELLING, SECONDARY TO A FLU INJECTION. HE WAS AT ONE TIME, APHASIC AND IS WITH SLURRED SPEECH; HOWEVER, HE IS NOW MUCH BETTER AND ABLE TO COMPREHEND AND EXPRESS. I DID DISCUSS WITH HIM PLAN OF CARE IN DETAIL AND HE VERBALIZED UNDERSTANDING AND AGREEMENT. JAY PABLO MD WMS/modl /[id number] D: [id number] T: [id number] HISTORY & PHYSICAL
--- NOTE | ~2016-08-19 | CON ---
PATIENT'S NAME: JULISSA MIDDLETON [facility] AGE: 75 Y [address] ROOM: [address] [place] [address] LOCATION: [facility] ADMIT DATE: 08/19/2016 Consultation DISCHARGE DATE: 08/28/2016 FAMILY PHYSICIAN: Mackenzie Santa MD ATTENDING PHYSICIAN: Jay Pablo DATE OF CONSULTATION: 08/25/2016 REFERRING PHYSICIAN: Jaja Bowers MD Team members reporting include Dr. Pablo; Nancy Blanc, Regulator Inspector; Gillian Grady, RN; Rena Benitez, PT; Treasure Toney, OT; Charity Millan, Speech Therapy; Sloane Hubbard, therapeutic rec; Sister Evy Willis, Pastoral Care; and Winnie Reyna, pharmacist. CURRENT STATUS: Julissa is a 75-year-old man, admitted to our inpatient rehab unit on August 19, 2016 following a left thalamus CVA with right hemiplegia. The patient has a history of hypothyroidism, hypertension, diabetes type 2, history of carcinoma of the bladder, dyslipidemia, and neuropathy. He is currently continent of bowel and bladder. Skin condition is good. He does have some scabs to his right ness. No pain issues. The patient is on a consistent carbohydrate diet, p.o. intake is 100%. Prealbumin 24. The patient transferred to currently independent. He can ambulate 600 feet independently and climb 12 stairs with mod I and 1 railing. He has met 8/9 long-term PT goals. The patient can dress his upper and lower body at standby; grooming and feeding independent; bathing, toilet transfers, and shower transfers, standby; and toileting standby. The patient's comprehension is minimal to standby assistance. Language and expression minimal to standby assistance. Memory minimal to standby assistance and problem solving, minimal to standby assistance. He can complete car transfers at contact guard assistance, path finding standby. The patient has been very open to Pastoral Care. He has a strong restorationist phase and likes daily communion. No pharmacy concerns. DISCHARGE PLAN: The patient is receiving 3 hours of PT, OT, and speech Wednesday through Wednesday. The patient has daily rehab, nursing, and physiatry involvement as well as therapeutic recreational services 4 days per week. The patient has shown functional improvement and is progressing. Please see his plan of care for specific goals. Plan is for patient to discharge on Sunday, August 28, 2016. The patient plans to go home with and outpatient therapy services. NANCY BLANC FOR JAY PABLO MD PATIENT'S NAME: JULISSA MIDDLETON [facility] AGE: 75 Y [address] ROOM: [address] [place] [address] LOCATION: [facility] ADMIT DATE: 08/19/2016 Consultation DISCHARGE DATE: 08/28/2016 FAMILY PHYSICIAN: aMckenzie Santa MD ATTENDING PHYSICIAN: Jay Pablo TD/modl /[id number] d: 08/28/16 1753 t: 09/17/16 1112, CONSULTATION REPORT
[~2016-08-19 09:26] MED LIST: ALTACE10 MG PO; ASPIRIN LO-DOSE81 MG PO; GLUCOTROL 5MG XL5 MG PO; LEVOTHROID (SY88 MCG PO; LIPITOR80 MG PO; METAMUCIL PACKE1 PKT PO; NEURONTIN100 MG PO; NORVASC2.5 MG PO; STOOL SOFTENER100 MG PO; ULTRAM50 MG PO
--- NOTE | 2016-08-19 09:35 | NUR ---
Pt admitted to [facility] from [facility] following CVA on . Right upper and lower ext. weakness present, but improving. Pt able to move all 4 ext. Right side weaker than left but able to follow all commands. Numbness/tingling in feet r/t diabetic neuropathy. Expressive aphasia present, mumbling at times. Pt reported pain in rt shoulder, and has a hx of rt shoulder pain. at bedside and helpful with admission information. pt drowsy upon admission. Was able to answer some admission questions appropriately. Pt cooperative with admission process.
--- NOTE | 2016-08-19 14:32 | NUR ---
At 1340 O.T. noted large swollen area, warm to touch, painful, redness to post left arm in location of where pt had received pneumonia vaccine prior to leaving [facility]. Domingo Lord NP notified. She was in to assess area and orders received. Will continue to monitor pt status, and site.
[2016-08-19 15:40] LABS: BILIRUBIN URINE NEGATIVE (NEGATIVE); BLOOD URINE 10 /UL (NEGATIVE); COLOR URINE YELLOW (YELLOW); GLUCOSE URINE NEGATIVE (NEGATIVE); KETONE URINE NEGATIVE (NEGATIVE); LEUKOCYTES URINE 25 /UL (NEGATIVE); NITRITE URINE NEGATIVE (NEGATIVE); PROTEIN URINE NEGATIVE (NEGATIVE); TURBIDITY URINE CLEAR (CLEAR); UROBILINOGEN URINE NORMAL (NORMAL)
--- NOTE | 2016-08-19 15:44 | NUR ---
Significant Event: Pt admitted at 0933. Rt sided weakness present, but improving. Moderate grasp and able to dorsiflex and plantarflex bilat. Pt up to BR with SBA, gait, belt, slightly unsteady, vik. well. Pt reports he has hx of diabetic neuropathy in bilat. feet. Pt c/o pain to rt shoulder, he reported he has had this prior to CVA. Pt took norco on [facility] prior to transfer. This afternoon O.T. noted large swollen area to left post. upper arm in area that pneumonia vaccine was given. Domingo Lord NP. She was in to assess area, meds orders received, benedryl, prednisone, pepcid, and we are to assess area and pt q2h. Area was marked. Accucheck at 1100 189, novolog 2 units given. Expressive aphasia present, mumbles at times. UA obtained this afternoon. Follow up: Continue to monitor pt and site to left post upper arm Q2H., safety, pain management, continue accuchecks
[2016-08-19 16:07] LABS: BACTERIA URINE FEW (NEGATIVE); HYALINE CAST URINE RARE #/LPF (NEGATIVE); RBC URINE 0-2 #/HPF (NEGATIVE); WBC URINE 0-2 #/HPF (NEGATIVE)
[2016-08-19 18:21] LABS: BASOPHIL % 0.3 %; EOSINOPHIL # 0.2 K/uL (0.0-0.5); EOSINOPHIL % 1.7 %; HEMATOCRIT 45.6 % (37.0-53.0); HEMOGLOBIN 15.1 g/dL (11.0-16.0); IMMATURE GRANULOCYTE # 0.1 K/uL (0.0-0.3); IMMATURE GRANULOCYTE % 0.4 %; LYMPHOCYTE # 2.3 K/uL (0.8-4.0); LYMPHOCYTE % 19.5 %; MCH 30.6 pg (27.0-34.0); MCHC 33.1 gm/dL (32.0-36.5); MCV 92.5 fl (83.0-98.0); MONOCYTE # 0.5 K/uL (0.0-1.0); MONOCYTE % 4.5 %; MPV 9.6 fl (9.4-12.4); NEUTROPHIL # (ANC) 8.7 K/uL (1.4-9.0); NEUTROPHIL % 73.6 %; NRBC % 0 /100WBC (0-0.00); PLATELET COUNT 233 K/uL (150-450); RBC 4.93 M/uL (3.50-5.50); RDW-CV 12.3 % (11.9-14.6); WBC 11.9 K/uL (4.0-11.0)
--- NOTE | 2016-08-20 04:12 | NUR ---
A/O x 3. Pleasant. Cooperative. Family at bedside throughout the night. slept in recliner. No c/o's. CT scan completed of LUE. Results read back to Dr Dey. No further orders received. LUE induration has subsided. Swelling continues to be evident with mild pink color and warmth to the area. Size has continued to shrink in size. Continent of B/B. Ambulates with 1-assist using gait belt. Aphasic using simple yes/no answers to communicate. Tolerated dinner well. No difficulty swallowing. Rested very well.
[2016-08-20 05:16] LABS: BASOPHIL % 0.2 %; HEMATOCRIT 43.1 % (37.0-53.0); HEMOGLOBIN 14.5 g/dL (11.0-16.0); IMMATURE GRANULOCYTE # 0.1 K/uL (0.0-0.3); IMMATURE GRANULOCYTE % 0.5 %; LYMPHOCYTE # 2.5 K/uL (0.8-4.0); LYMPHOCYTE % 19.5 %; MCH 30.5 pg (27.0-34.0); MCHC 33.6 gm/dL (32.0-36.5); MCV 90.7 fl (83.0-98.0); MONOCYTE # 0.8 K/uL (0.0-1.0); MONOCYTE % 6.5 %; MPV 9.7 fl (9.4-12.4); NEUTROPHIL # (ANC) 9.5 K/uL (1.4-9.0); NEUTROPHIL % 73.3 %; NRBC % 0 /100WBC (0-0.00); PLATELET COUNT 239 K/uL (150-450); RBC 4.75 M/uL (3.50-5.50); RDW-CV 12.1 % (11.9-14.6); WBC 12.9 K/uL (4.0-11.0)
[2016-08-20 05:58] LABS: ALBUMIN 3.2 gm/dL (3.5-5.0); ANION GAP 18.4 (10.0-19.0); CALCIUM 9.4 mg/dL (8.5-10.5); CREATININE 1.3 mg/dL (0.6-1.3); POTASSIUM 4.4 mMol/L (3.7-5.1); TOTAL BILIRUBIN 0.4 mg/dL (0.0-1.5)
--- NOTE | 2016-08-20 08:30 | NUR ---
D: Therapeutic Recreation Initial Assessment on the 08/20/16. I: Patient seen for 2 units to begin initial evaluation. Pt has dx of CVA with aphasia and apraxia. R: Patient's current living situation and status: house in town Home entrance steps: 2 Living with: spouse Spouses name: Domenica # of children: 3, 1 close Driving: yes, spouse drive Ambulating: I Equipment: N/A Hand Dominance: Right Director Shopper Marketing strength: not tested Eye sight: glasses Reading ability: not tested Hearing: no problems Speech: clear, aphasia Cognition: alert Comprehension: fair Following directions: yes Initiating: no Eye contact: good Affect: flat COMMUNITY INVOLVEMENT: zoroastrian weekly, occ. out to eat, grocery shopping, visit family/friends, car rides LEISURE INTERESTS: working on metal, cuts wood, watch TV, some games, garden, yard work, domLoccie, hand game solitaire, read newspaper Patient is referred by medical staff for treatment and evaluation in the following areas: Community Skills, Functional Leisure Skills, Participation, Leisure Education/Behaviors, Family Education, Cognitive, Emotional. Information obtained: Interview, Chart Review, Family resource, Observation, other. BARRIERS TO LEISURE: Social, Financial, Physical, Lifestyle (reports some problems with depression) Patient determined to be: APPROPRIATE FOR THERAPEUTIC RECREATION ASSESSMENT. TREATMENT WILL INCLUDE: Community living skills training Functional leisure development Physical skills development Cognitive skills development Social skills development Leisure education Emotional/behavioral adaptation Family education Community resources/packet TARGET EQUIPMENT/INFORMATION: Parking Permit to assess need Community Resources Energy conservation in community setting Van/Service/Taxi Scrip Adapted Leisure Equipment Stress management/Relaxation techniques Functional car transfers Leisure Education Behaviors: Attitude, Awareness, Participation. Patient functional skills level and potential: Good, pt demonstrates fair mobility with concerns for coping and safety. Patient oriented ot TR services on Rehab unit. Pt/family provided input into goals setting and plan of care. Pt's goal is to be independent and return home to prior lifestyle. P: Target date set with personal goals established. Will continue with POC focusing on pt/family training and education. For additional information please see Nursing Data Base, PT, OT, CM, ST, initial assessments to [facility] and Interdisciplinary Assessments.
--- NOTE | 2016-08-20 14:15 | NUR ---
D: TR progress note for 08/20/16. I: Pt seen for 2 units at 1333 for community integration skills building, functional transfers, safety awareness and family training. R: Pt seen for functional skills building working on mobility, safety, functional transfers and family education to increase independence with community re-entry skills. Pt's spouse present for session, transferred into their car by Therapies (OT/TR). Pt given visual demonstration and verbal instructions on proper technique for car transfers prior to pt completing them. Pt transferred sit > stand from WC SBA, ambulated to/from vehicle SBA and transferred in/out of vehicle SBA with good recall on hand placement. Pt was SBA for BLE management and positioning of self with cues on ways to adapt surface using trash bag. Pt tolerated short car ride around parking lot with no C/o pain, discomfort or dizziness. P: Will continue to see to address goals and plan of care.
--- NOTE | 2016-08-20 15:31 | NUR ---
Significant Event: Pt up in room with SBA and belt. Pt slightly unsteady, r/t right leg weakness. Pt reported some rt shoulder pain, but refuses medication. Expressive aphasia present, but able to communicate needs at times. Pt had one episode of increased weakness to rt side as reported by P.T. and slight facial twitch at one time, then during lunch was able to use right side appropriately and was at the same strength level as in the am for nurse and O.T. for showering. Pt denied any different sensations. Area of swelling to post left arm is much less, redness gone, and area is not as painful or hard upon palpation. Pt pleasant and cooperative with cares. Follow up: activity, safety, accuchecks, pain management, use of alarms.
--- NOTE | 2016-08-21 01:19 | NUR ---
Significant Event: Alert and oriented. Asphagic. Is able to communcate enough to make needs known. Meds given whole with water. Mimial swelling to left arm. No redness noted. Hand grasps slightly weak. No facial twitch noted. VSS. ACHS accuchecks. HS blood sugar was 179. 2 Units of novolog given. stayed at bedside t/o shift. Pleasant and cooperative w/ cares. Follow up:
--- NOTE | 2016-08-21 14:35 | NUR ---
Significant Event: Patient alert and oriented. Denies pain. Up with SBA and gait belt. Asphagic. Slight weakness to right side. Hand grasps weak. Accuchecks ACHS. Last BS 156. 2 units of novolog given. Meds whole with water. Minimal swelling to left upper arm. stays in room. Cooperative with cares. Follow up:
--- NOTE | 2016-08-22 04:39 | NUR ---
A/O x 3. Pleasant. Cooperative. Mx family visitors until 2029. Spouse sleeping in room with the patient. Rolling bed ordered tonight and placed in the room for spouse comfort. Stand by assist x 1. Patient using call light before getting out of bed as instructed. Continent of B/B. Rested well.
--- NOTE | 2016-08-22 15:21 | NUR ---
Significant Event:PATIENT ALERT AND ORIENTED THIS SHIFT. VSS. TRANSFERS WITH 1 ASSIST AND GAIT BELT. STEADY ON HIS FEET. CAN NOW WALK HIM IN THE HALLS. ACCU CHECKS ARE DONE ACHS. BREAKFAST WAS 144 AND LUNCH WAS 157. HE RECEIVED 2 UNITS OF SLIDING SCALE INSULIN AT LUNCH TIME. AT BEDSIDE ALL SHIFT. HAS DENIED PAIN. NO OTHER COMPLAINTS. Follow up:
--- NOTE | 2016-08-23 05:06 | NUR ---
Significant Event: PATIENT HAS BEEN SLEEPING SINCE I TOOK OVER HIS CARES. ROOMS IN AND ASSISTS WITH HIS NEEDS. ACCU CHECK LAST NIGHT WAS 197. DENIES NEED FOR PAIN MEDS. Follow up:
--- NOTE | 2016-08-23 13:53 | NUR ---
Significant Event: Alert and oriented x 3. Up with 1A gait belt. has been cleared to walk him in the halls. Accu checks ACHS. BS at lunch 234. 4 Units of sliding scale given. Denies pain. present throughout the day. Cooperative with cares. Follow up:
--- NOTE | 2016-08-24 03:08 | NUR ---
Significant Event:PT AAOX3.PLEASANT WITH STAFF AND CARES. 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 PT UP WITH STAND BY ASSIST AND GB.STEADY GAIT.DENIES PAIN WHEN ASKED.VSS. USES CALL LIGHT APPORP. CONT OF BOWEL AND BLADDER. TAKES MEDICAITON WHOLE WITH NO COMPLICATIONS. HS BLOOD SUGAR WAS 144 NO S/S NEEDED. WALKS IN [place] WITH . Follow up:
--- NOTE | 2016-08-24 11:51 | NUR ---
D: TR progress note for 08/24/16. I: Pt seen for 2 units at 1100 for leisure education, coping strategies, and fine motor skills building. R: Pt seen for functional skills building working on fine motor skills, coordination, sequencing and coping doing small bead work making bracelet to increase independence with all activities. Task was adapted by darkening end of thread to help locate thread's end and 4 inch plate used to maintain beads in place. Pt independent with decision making, sequencing, and color choices. Pt demonstrating fair > good fine motor skills and coordination utilizing BUE to maneuver small beads when threading thin elastic line and using scissors. Education continued on coping skills and use of leisure involvement. P: Will continue to see to address goals and plan of care.
--- NOTE | 2016-08-24 13:31 | NUR ---
Patient is alert and oriented. VSS, ACHS accucheck with coverage given at lunch. SBA with gait belt. He mumbles. is his clinical manager home care but will not be back until tomorrow night, she is at work today and tomorrow.
--- NOTE | 2016-08-24 13:37 | NUR ---
A-SCREENED D/T LOS; NEW ADMIT TO [facility] S/P CVA; R)SIDED WEAKNESS HT: 68 IN. CBW 85.9 KG (STANDING SCALE); ADMIT WT: 87.5 KG (BED SCALE) BMI 29.4 (+)BM LABS: NA 140, K+ 4.4, GLU 245, BUN 22, ACCOUNTS COLLECTOR 1.3, ALB 3.2, PREALB 24.0 MEDS: PRN BOWEL MEDS, METAMUCIL, COLACE, NORVASC, LIPITOR, GLUCOPHAGE, NEURONTIN, ULTRAM DIET RX: CONSISTENT CARB. PO INTAKE 100% EST NUTR NEEDS: 2454-4180 KCALS (20-25 GM/KG) 68-86 GM PROTEIN (0.8-1.0 GM/KG) 1 ML FLUID/KCAL D-NOT AT NUTRITION RISK; NO NUTRITION DX IDENTIFIED I-CONTINUE W/CURRENT DIET RX M/E-GOAL: PO INTAKE >/=75% FOR DURATION OF ADMIT
--- NOTE | 2016-08-25 04:38 | NUR ---
A/O x 3. Pleasant. Cooperative. Dinner in room sitting in recliner. 100% eaten. Tolerated well. Continent of B/B. Rested very well. not with patient tonight. 1 person stand by assist/gait belt. No c/o's tonight.
--- NOTE | 2016-08-25 14:31 | NUR ---
Significant Event: Pt up in room with SBA, steady, vik. well. Slight right sided weakness noted. Continent of bowel and bladder. Accuchecks 143,170. Neuropathy in feet. Pt uses call light appropriately. Pleasant and cooperative with cares. Large BM today. Follow up: safety, activity
--- NOTE | 2016-08-25 14:43 | NUR ---
D: TR progress note for 08/25/16. I: Pt seen for 2 units at [facility] for community integration skills building, functional transfers and safety awareness. R: Pt seen for functional skills building working on cognitive task, scanning and transfers to increase independence for community re-entry. Pt taken around [facility] campus indoors to simulate community environment. Pt transferred sit > stand from WC SBA, ambulated 6 feet to/from low community chair SBA and transferred in/out of chair SBA with good safety awareness. Pt demonstrated ability to pathfinding by reading maps, following signs and looking for land angel to locate and navigate way to [facility] entry with min > occasional cues. Pt able to problem solving to identify locations and demonstrated good safety skills with community environment. P: Will continue to see to address goals and plan of care.
--- NOTE | 2016-08-26 04:56 | NUR ---
Alert and oriented. Uses call light as needed, but cannot wait long due to urgency of urine. Rt hand grasp slightly weaker than left. Ambulates well with standby assist. Denies need for pain meds. Plans to D/C on Wednesday
--- NOTE | 2016-08-26 12:28 | NUR ---
Diabetes consult: Reviewed blood sugars trends. Patient is well controlled with blood sugars 140-173. Will continue to follow.
--- NOTE | 2016-08-26 16:01 | NUR ---
Significant Event:PATIENT ALERT AND ORIENTED THIS SHIFT. VSS. TRANSFERS WITH 1 ASSIST, GAIT BELT AND SBA. ACCU CHECK AT BREAKFAST WAS 149. LUNCH WAS 166 AND RECEIVED 2 UNITS OF SLIDING SCALE INSULIN. DENIES PAIN THIS SHIFT. RESTS IN RECLINER WHEN NOT IN THERAPY. NO OTHER COMPLAINTS. Follow up:
--- NOTE | 2016-08-27 04:01 | NUR ---
A/O x 3. Pleasant. Cooperative. Stand by assist. Family visit until 2044. 100% dinner eaten. Tolerated well. Refused HS snack. Continent of B/B. Rested fair.
--- NOTE | 2016-08-27 12:10 | NUR ---
[facility] Case Management Prefunctioning and Psycho-Social Initial Assessment for 08/19/16, Case Conference Note for 08/25/16 and Discharge Note for 08/28/16 D: Initial Meat PasserCash Applications Associate, Case Conference Note, Discharge Note. I: Input from: patient, family, Dr. Ta, Dr. 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 No assistive devices was used. Prior living situation: one story house with basement. Financial resources/expectations: patient has Medicare and [place] [employer] [place]. Resources used: toilet riser Resources available: [facility], outpatient therapy. Family support available: Spouse, kids. 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 Behavior/Emotional needs: cues for safety. Monitor for signs and symptoms of depression and anxiety. Legal concerns: none. Discharge goal: home with support. Assessment: Star is a 75 year old man from [place], [place] admitted after a stroke. He has good family support. Plan is d/c on Sunday, August 28, 2016 with outpatient therapy. No equipment is needed at this time. Will call patient next week to see how he is doing post discharge. Orientation to the program and CM services completed with Star. Initial plan of care and estimated length of stay discussed, disclosure statement reviewed including patient assessment rights. P: Target date and individual goals established. Please see POC for details. For additional information please see Nursing Data Base, PT, OT, TR, ST, Initial assessments to [facility].
[2016-08-27] MEDS ORDERED: PLAVIX75 MG PO (12:56)
[2016-08-27] MEDS ORDERED: GLUCOPHAGE500 MG PO (12:58)
--- NOTE | 2016-08-27 14:33 | NUR ---
Significant Event:PATIENT ALERT AND ORIENTED THIS SHIFT. VSS. WAS MADE INDEPENDANT TODAY BY THERAPY. DOING WELL. STEADY ON HIS FEET. PLANS TO GO HOME TOMORROW. HAS DENIED PAIN. ACCU CHECKS HAVE NOT REQUIRED ANY SLIDING SCALE INSULIN THIS SHIFT SO FAR. RESTS IN RECLINER WHEN NOT IN THERAPY. NO OTHER COMPLAINTS. Follow up:
--- NOTE | 2016-08-28 03:46 | NUR ---
A/O x 3. Pleasant. Cooperative. No c/o's. Up at ana. Plan for D/C home 08/28/16. Continent of B/B. Rested well.
== END 2016-08-28 10:45 | disposition disaster alternative care site (69) | DRG 57 ==
LOC: GIRP 09:26
PROVIDERS: Nurse Practitioner Family; ADMIT Physical Medicine & Rehabilitation
DX: I69.351 Hemiplegia and hemiparesis following cerebral infarction affecting right dominant side (principal); G62.9 Polyneuropathy, unspecified; I69.320 Aphasia following cerebral infarction; I10 Essential (primary) hypertension; E78.5 Hyperlipidemia, unspecified; I69.390 Apraxia following cerebral infarction; D11.9 Benign neoplasm of major salivary gland, unspecified; E74.39 Other disorders of intestinal carbohydrate absorption; R26.9 Unspecified abnormalities of gait and mobility; E03.9 Hypothyroidism, unspecified; Z91.81 History of falling; Z79.02 Long term (current) use of antithrombotics/antiplatelets; Z79.84 Long term (current) use of oral hypoglycemic drugs; Z85.51 Personal history of malignant neoplasm of bladder; K59.00 Constipation, unspecified; R60.0 Localized edema; T50.Z95A Adverse effect of other vaccines and biological substances, initial encounter
CPT/HCPCS: J1650; J7512